=== PATIENT | female | born 1995 | race Two or more races ===

== ENCOUNTER 2024-05-13 12:15 | Inpatient (IN) | payer OTHER ==
[~2024-05-13] VITALS: Ht 162.6 cm; Wt 56.2 kg
[2024-05-13] MEDS ORDERED: LEVO-T100 MCG PO (15:20)
[2024-05-17] MEDS ORDERED: CEFAZOLIN SODIUM 1,000 MG VIAL ONE ×2 (17:51→22:20)
[2024-05-17] MEDS ORDERED: POVIDONE-IODINE 118 ML BOTT TOP ONE (17:51)
[2024-05-17] MEDS ORDERED: CEFAZOLIN SODIUM 1,000 MG VIAL IV SCH ×2 (18:45→20:00)
[2024-05-17] MEDS ORDERED: ONDANSETRON HCL 2 MG/ML VIAL IV PRN (19:30)
[2024-05-17] MEDS ORDERED: MORPHINE SULFATE 4 MG/ML VIAL IV PRN (19:30)
[2024-05-17] MEDS ORDERED: RINGERS SOLUTION,LACTATED 1,000 ML IV SCH (19:45)
[2024-05-17] MEDS ORDERED: MORPHINE SULFATE 4 MG,MORPHINE SULFATE 2 MG IV PRN (19:45)
[2024-05-17] MEDS ORDERED: MORPHINE SULFATE 4 MG/ML VIAL IV ONE ×2 (19:50→22:30)
[2024-05-18] MEDS ORDERED: CEFAZOLIN SODIUM 1,000 MG VIAL ONE (02:43)
[2024-05-18 03:29] LABS: HEMATOCRIT 33.3 % (36.0-45.00); HEMOGLOBIN 11.1 g/dL (12.0-15.00); MEAN CELL VOLUME 85.9 fL (80.00-100.00); MEAN CORPUSCULAR HEMOGLOBIN 28.6 pg (27.00-32.0); MEAN CORPUSCULAR HGB CONC 33.3 g/dl (32.0-36.0); PLATELET COUNT 273 K/uL (150-450); RED BLOOD COUNT 3.88 M/uL (4.00-6.00); RED CELL DISTRIBUTION WIDTH 12.5 % (11.5-14.5)
[2024-05-18] MEDS ORDERED: IBUprofen 800 MG TABLET PO PRN (07:00)
[2024-05-18] MEDS ORDERED: GABAPENTIN 300 MG CAPSULE PO PRN (07:00)
[2024-05-18] MEDS ORDERED: ENOXAPARIN SODIUM 40 MG/0.4 ML SYRINGE SUBCUTANEO SCH (09:00)
[2024-05-18] MEDS ORDERED: HYOSCYAMINE SULFATE 0.125 MG TAB.SUBL PO SCH (18:00)
[2024-05-19] MEDS ORDERED: GABAPENTIN300 MG PO (07:42)
[2024-05-19] MEDS ORDERED: HYOSCYAMINE0.125 M1 PO (07:42)
[2024-05-19] MEDS ORDERED: IBUPROFEN800 MG PO (07:43)
== END 2024-05-19 10:25 | disposition home or self-care (01) | DRG 743 ==
LOC: OB/GYN 05-17 12:15 → O/R 05-17 15:16 → OB/GYN 05-17 15:16
PROVIDERS: ADMIT Obstetrics & Gynecology Gynecology; ATTEND Obstetrics & Gynecology Gynecology
PROC: 0UB00ZZ Excision of Right Ovary, Open Approach (ICD-10-PCS; principal; 2024-05-17 12:15)
DX: D27.0 Benign neoplasm of right ovary (principal); Z20.822 Contact with and (suspected) exposure to COVID-19